=== PATIENT | female | born 1960 | race Caucasian/White ===

== ENCOUNTER → 2023-11-08 | Outpatient (CLI) | payer OTHER, SELFPAY ==
[2023-11-08 11:00] LABS: Anion Gap 4 (5-15); BUN 16 mg/dL (7-18); BUN/Creat Ratio 15.4 RATIO (10-20); Calcium,Total 9.8 mg/dL (8.5-10.1); Chloride 110 mmol/L (98-107); Creatinine, Serum 1.04 mg/dL (0.55-1.02); EST Glomerular Filtration Rate 57 mL/min (>60); Est Glom Filt Rate - Afr Amer 69 mL/min (>60); Glucose 107 mg/dL (74-106); Potassium 4.2 mmol/L (3.5-5.1); Sodium Level 140 mmol/L (136-145)
== END | disposition home or self-care (01) ==
LOC: PAVLAB 10:17
PROVIDERS: Referring Provider Surgery; Visit Provider Surgery
DX: K80.50 Calculus of bile duct without cholangitis or cholecystitis without obstruction (principal)
CPT/HCPCS: 36415; 80048

== ENCOUNTER 2023-11-17 08:01 | Day surgery (SDC) | payer OTHER, SELFPAY ==
--- NOTE | 2023-11-12 06:37 | EKG12_ITS ---
Test Reason : PREOP Blood Pressure : / mmHG Vent. Rate : 066 BPM Atrial Rate : 066 BPM P-R Int : 128 ms QRS Dur : 086 ms QT Int : 396 ms P-R-T Axes : 080 085 063 degrees QTc Int : 415 ms Sinus rhythm with Premature atrial complexes Otherwise normal ECG Confirmed by SOPHIA GUERRERO, ROBERT ([id number]), photo editor KOTA MORALES ([id number]) on 11/12/2023 8:17:09 AM Referred By: Chase Rice Confirmed By:ROBERT CORTES MD
[2023-11-12 07:36] LABS: Hematocrit 48.1 % (37-47); Hemoglobin 15.7 g/dL (12.0-15.0); Mean Corp Hgb Conc 32.6 g/dL (32-36); Mean Corpuscular Hgb 30.5 pg (27.0-32.0); Mean Corpuscular Volume 93.6 fL (81-99); Mean Platelet Vol. 10.6 fl (6.2-12.0); Platelet Count 396 K/mm3 (150-450); RBC Distribution Width CV 13.2 % (11.6-14.6); RBC Distribution Width SD 45.7 fl (35.1-43.9); Red Blood Count 5.14 M/mm3 (4.2-5.4); White Blood Count 10.3 K/mm3 (4.4-11.0)
[2023-11-12 08:04] LABS: Anion Gap 5 (5-15); BUN 16 mg/dL (7-18); BUN/Creat Ratio 13.9 RATIO (10-20); Calcium,Total 9.4 mg/dL (8.5-10.1); Chloride 109 mmol/L (98-107); Creatinine, Serum 1.15 mg/dL (0.55-1.02); EST Glomerular Filtration Rate 51 mL/min (>60); Est Glom Filt Rate - Afr Amer 61 mL/min (>60); Glucose 79 mg/dL (74-106); Potassium 4.1 mmol/L (3.5-5.1); Sodium Level 139 mmol/L (136-145)
[2023-11-17] VITALS (13 sets, daily range): BP systolic 74–111; BP diastolic 46–74; PULSE 56–75; RESP 16–18; TEMP 35.8–36.2; O2SAT 91–100; BMI 23.1
[2023-11-17] MEDS: Lactated Ringers 1,000 ML 15 ML IV (08:33)
--- NOTE | 2023-11-17 09:07 | PCM.HP.BLA ---
History and Physical Date of Admission: 11/17/23 Date of Service: 11/08/23 MR#: [id number] Acct: [id number] Name: DARIA MAGUIRE Rep #: [id number] : 1960 Provider: Dr. 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 Accompanied by: Is patient in pain?: Yes (constant discomfort ) Allergies clarithromycin [From Biaxin] Allergy (Severe, Verified 11/08/23 09:48) Nauseasulfamethoxazole [From Septra] Allergy (Severe, Verified 11/08/23 09:44) Itchingtrimethoprim [From Septra] Allergy (Severe, Verified 11/08/23 09:48) hives Medications cetirizine 10 mg capsule (Zyrtec) 10 mg PO DAILY PRN 11/08/23 [History Confirmed 11/08/23] famotidine 20 mg tablet 20 mg PO BID 11/08/23 [History Confirmed 11/08/23] rosuvastatin 5 mg tablet mg PO 11/08/23 [History Confirmed 11/08/23] PFSH Medical History (Updated 11/10/23 @ 11:[address] Lianna Moya MD) GERD (gastroesophageal reflux disease) Surgical History (Updated 11/08/23 @ 09:42 by Santa Ceja LPN) S/P breast biopsy S/P hysterectomy Social History (Updated 11/08/23 @ 09:42 by Santa Ceja LPN) Smoking Status: Current every day smoker tobacco type: cigarettes alcohol intake: current substance use type: does not use HPI HPI HPI: 61-year-old female presents due to abnormal HIDA scan. Patient had an ejection fraction of 24%. Patient previously had an ultrasound showed no gallstones normal wall normal common bile duct no pericholecystic fluid. Patient states she has had issues for about a year first attack a year ago happened in the middle of the night pain went in the right upper quadrant area around her back and upper back. Patient also had a fever. Patient's next episode also happened in the middle of the night. Currently patient states now she has more of an achy right upper quadrant, back to shoulder pain happened about an hour after eating. Patient is never had a previous EGD had been on omeprazole the had issues she thinks due to the capsule of the omeprazole get changed to Protonix but that came off due to kidney function. Patient has been on famotidine since then. ROS General General: Yes weight change (loss ) and fatigue; No appetite, colon cancer, breast cancer or weakness Additional Details: 30 lbs over the last year unintentional HEENT HEENT: No difficulty swallowing, eye injury, eye surgery, swollen glands or hoarseness Endo Endocrine: No thyroid disease, diabetes mellitus, thyroid cancer, Hair loss, heat intolerance or cold intolerance Skin Skin: No rash or changing moles Musc Musculoskeletal: No back problems, arthritis, rheumatoid arthritis, gout or joint pain Cardio Cardiovascular: No murmur, pacemaker, heart disease, atrial fibrillation, high blood pressure, heart attack, heart stent, palpitations, shortness of breat with exertion or chest pain Psych Psychiatric: No depression, anxiety or hearing voices Resp Respiratory: No shortness of breath, No sleep apnea, No cough, No COPD, No asthma, No emphysema and No wheezing Gastro Gastrointestinal: Yes abdominal pain, Yes nausea or vomiting, No diarrhea, Yes constipation, No blood in stool, No acid reflux, No hemorrhoids, No ulcers, Yes gallbladder problem and No black,tarry stools Sincere Hematologic: No blood thinners, No blood disorders, No bleeding, No anemia and No blood clots Neuro Neurologic: No numbness, No tingling and No weakness Exam Const General: cooperative, healthy appearing, comfortable and no acute distress [facility] Head: normocephalic and atraumatic Neck Neck: supple Resp Effort & Inspection: normal respiratory effort Cardio Rate: regular rate GI Inspection: non-distended Palpation: soft, no hernias and tender in the epigastrum and in the RUQ; Monet's sign negative and with no rebound tenderness Skin General: no rashes or lesions noted Neuro General: CN's II-XI intact bilaterally Extrem General: normal to inspection Psych Mental Status: mental status grossly normal Attitude: cooperative Assessment and Plan Assessment and Plan (1) Biliary dyskinesia: Status: Acute (2) GERD (gastroesophageal reflux disease): Status: Acute Orders: Orders Basic Metabolic Profile (BMP) 11/08/23 K80.50 - Calculus of bile duct without cholangitis or cholecystitis without obstruction Plan Will recheck a BMP as patient is last GFR was 48 and her creatinine was 1.14 with a BUN of 16 she states she is unable to take ibuprofen due to her GFR dropping from previously 58. Reviewed the anatomy with the patient and discussed the procedure: laparoscopic cholecystectomy with possible cholangiograms, possible open. Review risks including but not limited to bleeding, infection, hernia, bile leak, retained gallstones requiring another procedure ERCP- Endoscopic Retrograde Cholangiopancreatography, injury to another organ (bile ducts, common bile duct, small bowel, etc.) and conversion to an open procedure. All questions were answered. Lianna Moya M.D. Pager: [phone] [facility] [address] [place] [address], [facility], [address] [place] [address] Office: [phone] Coding Level of Care Code Off vis,new,level 3 Diagnoses Biliary dyskinesia K82.8 GERD (gastroesophageal reflux disease) K21.9 11/10/23 1117 <Electronically signed by Lianna Moya MD> Date Lianna Moya MD
--- NOTE | 2023-11-17 09:45 | GALL_PTH ---
PATIENT: DARIA MAGUIRE [place] [facility] [id number] AGE/SX: 63/F ROOM: RE11/17/[address]: Dr. Lianna Moya MD : 1960 BED: DIS: 11/17/2023 SPEC #: [id number] RECD: 11/17/23 13:14 STATUS: MERI REHeather #: [id number] BERTRAND: 11/17/23 09:[address]: Lianna Moya DEPT: SURGICAL PATHOLOGY RECD BY: Natalie Gomez ENTERED: 11/17/23 13:59 SP TYPE: AFIA PORTER DR: Dr. Chase Rice, DO Tissues: Gallbladder, NOS Procedures: Surgery Specimen Level III HEADER OPERATION: Laparoscopic, Cholecystectomy PRE-OP DIAGNOSIS: Biliary dyskinesia TISSUE SUBMITTED: Gallbladder MICROSCOPIC DIAGNOSIS Gallbladder, cholecystectomy: Mild chronic cholecystitis and focal cholesterolosis See comment. JORDANA/ 11/18/23 COMMENT No stones are identified in the container or in the gallbladder. MICROSCOPIC DESCRIPTION Slides are reviewed. GROSS DESCRIPTION Received is one container labeled with the patient's name and designated gallbladder. The specimen consists of a gallbladder measuring 8.0 cm in length and up to 2.5 cm in diameter. The external surface is pink-ferreira, smooth and glistening for the most part. Focally it is granular, hemorrhagic and contains cautery artifact. The gallbladder contains green-yellow mucoid bile and no stones are identified in the container or in the gallbladder. The gallbladder mucosa shows two small orange polyp that may represent cholesterolosis. The polyps measure 0.1 to 0.2cm in greatest dimension. The gallbladder wall measures up to 0.2 cm in thickness. Furrier Apprentice sections from the gallbladder and the cystic duct are submitted in one cassette. The smaller polyps are submitted in entirety. / SJ: 11/17/23 TC:3 CPT: 50240
[2023-11-17] MEDS: Cefazolin 2 GM in 0.9% Normal Saline (100mL Bag) 100 ML IV (09:48)
[2023-11-17] MEDS: Bupivacaine Mpf 0.5% 30 ML VIAL (10:44)
--- NOTE | 2023-11-17 10:46 | PCM.OPRPT ---
Report of Operation Date of Procedure: 11/17/23 Pre-Operative Diagnosis: Biliary dyskinesia Post-Operative Diagnosis: Same Surgery/Procedure Performed:: Laparoscopic cholecystectomy Surgeon: Lianna Moya Anesthesiologist: Derik Keenan Special Medications: Ancef 2 g IV x 1 Specimen's removed: Gallbladder Estimated Blood Loss (mL): 10 cc Fluids Replaced: 1300 cc Description of Procedure: Indications: this is a 63 year-old female who developed abdominal pain/nausea and on workup was found to have biliary dyskinesia with an ejection fraction of 24%, with a normal common bile duct. Laparoscopic cholecystectomy was elected. Description procedure: The patient was placed on operating table in supine position. A timeout was completed verifying correct patient, procedure, site, position and special equipment prior to beginning procedure. General Anesthesia was induced. The abdomen was prepped and draped in usual sterile fashion. An incision was made in the natural skin line above the umbilicus. The fascia was elevated and incised. The peritoneum was elevated and incised. Entry into the peritoneum was confirmed visually and no bowel was noted in the vicinity of the incision. Juarez trocar was placed. The abdomen was insufflated with carbon dioxide to a pressure of 12-15 mmHg. Patient tolerated insufflation well. The laparoscope was then inserted and abdomen inspected. No injuries from initial trocar placement were noted. Additional trochars were then inserted in the following locations 5 mm trocar in the epigastrium and 2 more 5 mm trochars along the right costal margin. The abdomen was inspected no abnormalities were found. The table is placed in reverse Trendelenburg position with the right side up. The dome of the gallbladder was grasped with atraumatic grasper passed through the lateral port and retracted over the dome of the liver. Infundibulum was then grasped with atraumatic grasper through the midclavicular port and retracted to the right lower quadrant. This maneuver exposed Calot's triangle. The peritoneum overlying the gallbladder infundibulum was then incised and cystic duct and artery identified and circumferentially dissected. The cystic duct and artery were then doubly clipped and divided close to the gallbladder. The gallbladder then dissected from its peritoneal attachments by electrocautery. Hemostasis was checked and the gallbladder and contained stones were removed using the endoscopic retrieval bag through the umbilical port. The gallbladder is passed off table as specimen. The gallbladder fossa was irrigated with saline and hemostasis obtained. There is no evidence of bleeding from the gallbladder fossa or cystic artery leakage of bile from the cystic duct stump. Secondary trochars removed under direct vision. No bleeding was noted the trocar sites. The laparoscope was withdrawn and umbilical trocar removed. The abdomen was allowed to collapse. The fascia of the 12 mm trocar was closed with a [id number] 0 Vicryl suture. The skin was closed with sutures of 4-0 Monocryl and Steri-Strips. The patient was extubated. The patient tolerated procedure well and was taken to the postanesthesia care unit in stable condition. Complications none
--- NOTE | 2023-11-17 10:48 | DCINST_ITS ---
Discharge Instructions Diet Discharge Diet: Light diet - advance as tolerated Activity Discharge Activity: May Not Drive (while taking narcotic pain medications.) May shower in (days): 1 Lifting Restrictions: no lifting >20 lbs x 2 wks, no strenuous exercise for 4 wks Dressing / Incision Call your doctor if your incision/area has: Continuous Slow Oozing, Sudden Increased Bleeding, Increased Pain/ Swelling, Increased Redness, Foul Smelling Discharge and Swelling at the incision site Call your doctor if you observe: Fever of 101 or Higher Remove Dressing in: 2 days Cleanse incision/area with: Soap & Water Additional Dressing/Incision Instructions:: Steri-Strips will fall off in 7 to 10 days, if they do not fall off okay to remove after 10 days. Follow Up Care Please Follow Up With: Lianna Moya MD When: Call the office for a follow-up appointment 2 weeks; after 5 PM and on the weekends call [phone] with any concerns. Test Results: Test results from this visit will be discussed in further detail at your follow- up appointment, if applicable. Discharge Plan Admission Attending Provider: Lianna Moya Primary Care Provider: Chase Rice Discharge Orders/Prescriptions Prescriptions: New tramadol 50 mg tablet 50 mg PO Q6H PRN (Reason: pain) 3 Days Qty: 15 0RF Continued rosuvastatin 5 mg tablet 5 mg PO QODAY famotidine 20 mg tablet 20 mg PO BID Zyrtec 10 mg capsule 10 mg PO DAILY cholecalciferol (vitamin D3) [Vitamin D3] 50 mcg (2,000 unit) capsule 50 mcg PO DAILY Other Ambulatory Orders: 12 Lead EKG (Routine) Location: None Selected Ordered By: Dr. Derik Keenan Referrals / Follow Up: Chase Rice DO [Primary Care Provider] - Disposition Disposition (needs filled in before D/C Order can be placed): Home, Self Care
[2023-11-17] MEDS: traMADol 50 MG Tablet PO (13:13)
== END 2023-11-17 13:29 | disposition home or self-care (01) ==
LOC: SDC 08:04 → AC 08:04
PROVIDERS: Anesthesiology; Referring Provider Surgery; Visit Provider Surgery
PROC: (CPT 47610; principal; 2023-11-17 09:25)
DX: K81.1 Chronic cholecystitis (principal); K82.8 Other specified diseases of gallbladder; K21.9 Gastro-esophageal reflux disease without esophagitis; F17.210 Nicotine dependence, cigarettes, uncomplicated; E78.00 Pure hypercholesterolemia, unspecified; Z79.899 Other long term (current) drug therapy
CPT/HCPCS: 47562; 00790; 36415; 80048; 85027; 88304; 93005; J7120; J2405

== ENCOUNTER → 2024-01-06 | Outpatient (CLI) | payer OTHER, SELFPAY ==
[2024-01-06 09:16] LABS: ALB/GLOB Ratio 1.1 RATIO (0.9-2.4); AST(SGOT) 18 U/L (15-37); Alanine Aminotransfer ALT/SGPT 20 U/L (13-56); Albumin, Serum 3.8 g/dL (3.2-5.0); Alkaline Phosphatase 96 U/L (45-117); Anion Gap 3 (5-15); BUN 14 mg/dL (7-18); BUN/Creat Ratio 12.2 RATIO (10-20); Calcium,Total 9.6 mg/dL (8.5-10.1); Chloride 110 mmol/L (98-107); Cholesterol 165 mg/dL (200); Creatinine, Serum 1.15 mg/dL (0.55-1.02); EST Glomerular Filtration Rate 51 mL/min (>60); Est Glom Filt Rate - Afr Amer 61 mL/min (>60); GGTP 13 U/L (5-55); Globulin 3.5 g/dL (2.2-4.2); Glucose 99 mg/dL (74-106); High Density Lipoprotein 53 mg/dL; Potassium 4.5 mmol/L (3.5-5.1); Protein, Total 7.3 g/dL (6.4-8.2); Sodium Level 138 mmol/L (136-145); Triglycerides 103 mg/dL; Very Low Density Lipoprotein 21 mg/dL (5-40)
[2024-01-08 04:07] LABS: LDL, Direct 120295 97 mg/dL (0-99)
== END | disposition home or self-care (01) ==
LOC: PAVLAB 08:22
DX: Z00.00 Encounter for general adult medical examination without abnormal findings (principal); E78.00 Pure hypercholesterolemia, unspecified; R10.11 Right upper quadrant pain
CPT/HCPCS: 36415; 80053; 80061; 82977; 83721

== ENCOUNTER 2024-02-07 18:08 | Emergency (ER) | payer OTHER, SELFPAY ==
[2024-02-07 18:09] VITALS: BP 134/54; PULSE 94; RESP 16; TEMP 37; O2SAT 97; BMI 25.7
--- NOTE | 2024-02-07 18:27 | EX.ED.DYSGE1 ---
HPI History of Present Illness Chief Complaint: Chest Other Detail of Chief Complaint: Palpitations Informant: patient Onset/Context/Timing Onset: Month(s) Context: Sudden Onset Timing: Intermittent Quality: Skipped beats Location: Chest Current Severity: Mild Maximum Severity: Mild Worsened by: Nothing Relieved by: Nothing Associated Symptoms Associated Symptoms: Nothing Narrative Narrative: Patient is a 63-year-old woman. She has history of PACs. She was noted to have PACs when she had surgery in October. She believes this is due to the statin she was placed on. She was seen by her doctor. Her doctor called me to inform me that he believes she is having a heart attack based on her EKG. She denies chest pain, pressure tightness heaviness. She denies nausea, vomiting or diarrhea. She denies diaphoresis. Denies shortness of breath. Denies orthopnea or PND. Prior similar symptoms: Yes Recent Illness/Hospitalization: No PFSH PFSH Medical History PONV (postoperative nausea and vomiting) Wears glasses Wears dentures Cancer Smoker History of renal disease High cholesterol Palpitations History of echocardiogram History of stress test Mitral valve prolapse GERD (gastroesophageal reflux disease) Home Medications ?Medication ?Instructions ?Recorded ?Last Taken ?Type cetirizine 10 mg capsule (Zyrtec) 10 mg PO DAILY allergy symptoms 11/08/23 Unknown History famotidine 20 mg tablet 20 mg PO BID 11/08/23 11/17/23 07:00 History rosuvastatin 5 mg tablet 5 mg PO QODAY 11/08/23 Unknown History cholecalciferol (vitamin D3) 50 50 mcg PO DAILY 11/11/23 Unknown History mcg (2,000 unit) capsule (Vitamin D3) tramadol 50 mg tablet 50 mg PO Q6H PRN pain 3 days #15 11/17/23 Unknown Rx tabs Allergy/AdvReac Type Severity Reaction Status Date / Time clarithromycin (From Biaxin) Allergy Severe Nausea Verified 02/07/24 18:14 sulfamethoxazole (From Allergy Severe Itching Verified 02/07/24 18:14 Septra) trimethoprim (From Aprra) Allergy Severe hives Verified 02/07/24 18:14 Surgical History S/P laparoscopic cholecystectomy History of wisdom tooth extraction S/P hysterectomy S/P breast biopsy Social History (Updated 02/07/24 @ 18:[address] Arian Worthy MD) household members: spouse Smoking Status: Heavy Smoker (>10/day) alcohol intake: current substance use type: does not use ROS ROS ED Eyes Eyes: Denies blurry vision, change in vision or diplopia Cardiovascular Cardiovascular: Reports palpitations; Denies chest pain, orthopnea, paroxysmal nocturnal dyspnea or racing heartbeat Respiratory/Chest Respiratory/Chest: Denies cough, dyspnea, dyspnea on exertion, orthopnea or paroxysmal nocturnal dyspnea Gastrointestinal Gastrointestinal: Denies abdominal pain, diarrhea, nausea or vomiting Musculoskeletal Musculoskeletal: Denies back pain or neck pain Neurologic Neurologic: Denies paresthesias or weakness Psychiatric Psychiatric: Reports other Details: Patient placed that she is angry that her doctor made her come to the emergency department. ; Denies anxiety or depression Hematologic/Lymphatic Hematologic/Lymphatic: Reports systems reviewed and no addt'l complaints, except as documented EXAM Physical Exam Const Vital Signs: 02/07/24 18:09 02/07/24 18:13 Temperature 98.6 F Temperature Source Oral Pulse Rate 94 Respiratory Rate 16 Respiratory Effort Normal Non-Labored Respiratory Pattern Normal Blood Pressure 134/54 H Blood Pressure Mean 80 Pulse Ox 97 Oxygen Delivery Method Room Air Positive well nourished and well developed Constitutional Narrative: Blood pressure is slightly elevated. General Appearance ED: well developed and NAD; Negative for cyanotic, diaphoretic or pallor HEENT Reports moist mucous membranes HEENT Narrative: Head is atraumatic normocephalic. Ears normal. Nares patent. Posterior pharynx no erythema exudate Eyes PERRL and EOMs intact bilaterally General Eye ED: Negative for pale conjunctiva or scleral icterus Neck no lymphadenopathy, supple and no JVD Resp normal respiratory effort and clear to auscultation bilaterally Cardio regular rhythm, S1 normal heart sound, S2 normal heart sound and no murmurs Rate: other Other Details: Patient having frequent PACs noted on the monitor. Extremity normal to inspection General Extremety ED: Negative for edema or tenderness General Extremity: Negative for edema Neuro oriented x3 and CN's II-XII intact bilaterally Sensorium / Orientation: alert Psych Attitude: agitated Skin no rashes or lesions noted, no wounds and skin turgor normal General Skin Exam: Negative for jaundice or pallor MDM MDM MDM Narrative Medical decision making narrative: EKG was obtained. EKG reveals a normal sinus rhythm rate 89 with premature atrial beats. There is no ossific ST-T wave changes noted. This is unchanged from November 12, 2023. Patient at that time was told she had PACs. Since patient is having no anginal symptoms she has had this for months and the EKG is unchanged no further testing is needed. Patient was told that she needs to stop drinking caffeinated beverage. She rolled her eyes and said that not happening. Discharge Plan Triage Chief Complaint: Chest Other ED Provider: Arian Worthy Dx/Rx/DC Orders Clinical Impression: Atrial premature complexes Instructions: ED About Arrhythmias Prescriptions: No Action rosuvastatin 5 mg tablet 5 mg PO QODAY famotidine 20 mg tablet 20 mg PO BID Zyrtec 10 mg capsule 10 mg PO DAILY cholecalciferol (vitamin D3) [Vitamin D3] 50 mcg (2,000 unit) capsule 50 mcg PO DAILY tramadol 50 mg tablet 50 mg PO Q6H PRN (Reason: pain) 3 Days Qty: 15 0RF Primary Care Provider: Chase Rice Referrals: Chase Rice DO [Primary Care Provider] - As Needed Print Language: Japanese Disposition Disposition: Home, Self Care
--- NOTE | 2024-02-07 18:32 | EKG12_ITS ---
Test Reason : CHEST PAIN Blood Pressure : / mmHG Vent. Rate : 089 BPM Atrial Rate : 089 BPM P-R Int : 122 ms QRS Dur : 074 ms QT Int : 352 ms P-R-T Axes : 075 082 078 degrees QTc Int : 428 ms Sinus rhythm with Premature atrial complexes Nonspecific ST abnormality Abnormal ECG Confirmed by Wilver Yin ([id number]), editorial cartoonist OKTA MORALES ([id number]) on 02/09/2024 11:30:04 AM Referred By: RAMON WALLACE Confirmed By:Wilver Yin
--- NOTE | 2024-02-07 18:40 | ED.RN ---
I WENT INTO THE ROOM TO INFORM THE PATIENT THAT SHE IS BEING DISCHARGED AND EXPLAINED THE INSTRUCTIONS LISTED ON THE PAPERWORK WELL S/S TO LOOK OUT FOR AND WHEN TO RETURN. THE PATIENT YELLED AT ME I JUST WANT TO GET OUT OF HERE, THIS IS WORSE THAN GAYLE. TAKE THIS STUFF OFF OF ME RIGHT NOW!. WHEN ASKED WHAT MADE HER UPSET, SHE REPLIED WITH I AM OVER THIS LET ME LEAVE. PATIENT OFFERED TO SPEAK WITH THE PHYSICIAN, BUT SHE DENIED. 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 SHE WAS INFORMED SHE WAS ABLE TO LEAVE FOLLOWING REGISTRATION.
[2024-02-07 18:45] VITALS: BP 158/97; PULSE 89; RESP 16; TEMP 36.8; O2SAT 99
== END 2024-02-07 18:46 | disposition home or self-care (01) ==
LOC: ED 18:44
PROVIDERS: Emergency Provider Emergency Medicine; Visit Provider Emergency Medicine
DX: I49.1 Atrial premature depolarization (principal); R00.2 Palpitations; F17.200 Nicotine dependence, unspecified, uncomplicated
CPT/HCPCS: 93005; 99283